=== PATIENT | male | born 1975 | race Caucasian/White ===

== ENCOUNTER 2020-05-23 11:54 | Outpatient (REF) | payer BC, SELFPAY ==
[2020-05-23 14:03] LABS: MANUAL DIFF FLAG NO
[2020-05-23 14:39] LABS: Basophils Absolute Auto 0.1 X10*3/uL (0.0-0.2); Basophils Percent Auto 0.8 % (0-2); Eosinophils Absolute Auto 0.3 X10*3/uL (0.0-0.4); Hemoglobin 15.9 g/dl (14.0-18.0); Imm Gran Abs Auto 0.06 X10*3/uL (0.00-0.03); Imm Gran Pct Auto 0.7 % (0.0-0.4); Lymphocytes Absolute Auto 2.1 X10*3/uL (1.2-4.9); Lymphocytes Percent Auto 25.8 % (20-40); Mean Corpuscular HGB Conc 33.8 g/dl (31.0-36.0); Mean Corpuscular Hemoglobin 29.2 pg (27.0-33.0); Mean Corpuscular Volume 86.2 fL (80-98); Mean Platelet Volume 9.7 fL (9.4-12.4); Monocytes Absolute Auto 0.7 X10*3/uL (0.1-1.2); Monocytes Percent Auto 8.2 % (2-11); Neutrophils Absolute Auto 5.1 X10*3/uL (2.0-8.3); Neutrophils Percent Auto 61.5 % (45-73); Platelet Count 311 X10*3/uL (160-400); Red Blood Count 5.45 X10*6/uL (4.60-5.80); Red Cell Distribution Width 12.7 % (11.0-16.0); White Blood Count 8.3 X10*3/uL (4.8-10.8)
[2020-05-23 15:22] LABS: Thyroid Stimulating Hormone 4.14 uIU/mL (0.32-4.0)
[2020-05-23 15:29] LABS: Alanine Aminotransferase 44 U/L (0-40); Albumin Level 4.6 g/dL (3.5-5.0); Alkaline Phosphatase 78 U/L (39-117); Anion Gap 11 (12-20); Aspartate Amino Transferase 43 U/L (5-37); Bilirubin Total 0.7 mg/dL (0.0-1.0); Blood Urea Nitrogen 13 mg/dL (9-16); Carbon Dioxide 28 mmol/L (22-29); Chloride 107 mmol/L (96-108); Cholesterol 210 mg/dL; Estimated Glomerular Filt Rate > 60; Glucose Fasting 86 mg/dL (60-99); HDL Cholesterol 46 mg/dL; LDL Cholesterol Calculated 141 mg/dl; Potassium 4.4 mmol/l (3.3-5.1); Sodium 142 mmol/L (135-145); Triglycerides 119 mg/dL
== END 2020-05-23 11:55 | disposition home or self-care (01) ==
LOC: HO.HMGCLDS 11:54
PROVIDERS: PCP Internal Medicine; Visit Provider Internal Medicine
DX: J45.20 Mild intermittent asthma, uncomplicated (principal); Z00.00 Encounter for general adult medical examination without abnormal findings; E66.01 Morbid (severe) obesity due to excess calories
CPT/HCPCS: 36415; 80053; 80061; 84443; 85025

== ENCOUNTER 2023-12-25 15:40 | Outpatient (AMB) | payer OTHER, SELFPAY ==
--- NOTE | 2023-12-25 15:49 | AM.OFFWIN_ITS ---
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 ? Cellulitis Patient Tobacco Use Status: Never used Tobacco Allergies No Known Allergies Allergy (Unknown, Verified 12/25/23 15:49) NONE Do you need a note to return to daycare/school/sports/work: No HPI HPI Comments History of Present Illness Details Patient is a 48-year-old male complaining of questionable cellulitis on his left lower extremity. He states it has been there for 2 weeks but has gotten worse in the last few days. He has been treating it with petroleum jelly. He states he has swelling in both of his legs but only these open wounds on his left leg. He denies fevers and he is able to ambulate well. Patient states he does not have a primary care doctor and he has gained 100 lb over the last year because he is in a aguilera with his ex- over custody of his son. He states he recently 1 custody and hopes to get life back in order soon but he states he does not take any medications because he has no primary care doctor to assess his current health. [facility] Social History Patient Tobacco Use Status: Never used Tobacco Review of Systems Const All systems reviewed & are unremarkable except as noted in HPI and below Physical Exam Vital Signs: Last Vital Signs Temp 98.5 F 12/25/23 15:50 Pulse 81 12/25/23 15:50 BP 162/94 H 12/25/23 15:50 Pulse Ox 97 12/25/23 15:50 Oxygen Delivery Method Room Air 12/25/23 15:50 BMI result Body Mass Index 60.8 Const General: cooperative, healthy appearing, comfortable, no acute distress and well developed Orientation/consciousness: patient oriented x3 Limitations: no limitations HEENT Head: Yes normal to inspection Eyes General: appearance normal, both eyes and all related structures Neck Neck: Yes normal visual inspection and Yes full ROM Resp Effort & Inspection: normal respiratory effort and able to speak in complete sentences Skin Other: Anterior Left lower extremity has 9cm x 3cm area of induration, erythema and warmth with five 0.5 cm areas of open wounds with purulence Neuro General: patient oriented x3 Extrem General: Yes normal to inspection Assessment & Plan Assessment & Plan (1) Cellulitis: Code(s): L03.90 - Cellulitis, unspecified Qualifiers: Site of cellulitis: extremity Site of cellulitis of extremity: lower extremity Laterality: left Qualified Code(s): L03.116 - Cellulitis of left lower limb Plan: With purulent wounds and likely cellulitis, sent doxycycline to pharmacy. Recommended patient establish care with a PCP as soon as possible, his rapid weight gain over the last year, he likely has diabetes or at least his prediabetic and needs to establish care with a provider to have proper diagnosis and treatment of his current health. Plan See above Medications: New doxycycline hyclate 100 mg PO BID 14 tabs 0RF Coding Level of Care Code New Pt Level 3 (40249) Diagnoses Cellulitis of left lower extremity L03.116 Site of cellulitis: extremity Site of cellulitis of extremity: lower extremity Laterality: left
[2023-12-25 15:50] VITALS: BP 162/94; PULSE 81; TEMP 36.9; O2SAT 97; BMI 60.8
== END 2023-12-25 16:54 | disposition home or self-care (01) ==
PROVIDERS: Visit Provider Physician Assistant
DX: L03.116 Cellulitis of left lower limb (principal)
CPT/HCPCS: 99203

== ENCOUNTER 2024-05-13 12:28 | Outpatient (AMB) | payer OTHER, SELFPAY ==
[2024-05-13 12:34] VITALS: BP 138/80; PULSE 92; O2SAT 97; BMI 61.4
--- NOTE | 2024-05-13 12:34 | A.OFFPC_ITS ---
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 Intake Note: pt is here to est care, has skin issues Allergies No Known Allergies Allergy (Unknown, Verified 05/13/24 13:06) NONE Medication List - Last Reconciled 05/13/24 by VIKAS Rothman No Known Home Meds Tobacco use date assessed: 05/13/24 Dental Screening Dental Screen Date: 05/13/24 Did you have a dental visit in the last 12 months?: Yes Did you have a dental problem in the last 6 months where you did not have access to dental care?: No Was dental information given to patient?: Patient has dentist HPI 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 The patient reports significant legal and familial stress ongoing for over three and a half years, primarily related to custody disputes concerning his son, who is 16 years old and has transitioned gender. The patient has described issues with stress eating, which has contributed to his current obesity. He reports a weight of over a quarter ton, with a history of his weight being 220 pounds approximately four years ago. He acknowledges using food as an escape from stressors. The patient denied a history of trauma related to his child?s behavior but mentioned ongoing legal battles involving court cases and accusations, which have resulted in increased stress and weight gain. The patient is aware of unhealthy eating patterns and connects these behaviors to his current health challenges. BMI is 61.4 and he has tried diets and exercise programs. 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. - Housing: Owns a primary residence and a [place] house. - Family status: in 2019; has a stepdaughter and a step son. - Substance use: None reported. - Exercise: Reports interest in kayaking ; limited recent participation due to stress. - Nutrition: Reports stress-related over eating, particularly when encountering work challenges. Review of Systems - Neurological: Denies persistent headac hes or dizziness. - Cardiovascular: Denies chest pain. - Pulmonary: Denies shortness of breath unless exerted. - : Reports no urinary frequency, urge ncy, or nocturia outside of usual habits. - Musculoskeletal: Denies persistent lior n. - Psychological: Reports significant str ess due to personal and legal issues. Physical Exam General: Cooperative, healthy appearing, comfortable, no acute distress and well developed, morbidly obese Orientation: Patient oriented x3 Limitations: No limitations Head: Normal to inspection Ears: Hearing grossly normal bilaterally Nose: Normal external nose present Face and sinus: Normal facial exam Eyes: Appearance normal, both eyes and all related structures Neck: Normal visual inspection and Yes full ROM Respiratory: Normal respiratory effort and able to speak in complete sentences. Clear to auscultation bilaterally Cardiovascular: Regular rate and rhythm. Normal S1 and S2 : refused JARED GI: Normal to inspection. Soft to palpation and nontender Skin: No rashes or lesions noted Neuro: Patient oriented x3 Extremities: Brawny edema noted with discoloration and pitting in lower extremities Results - Labs: Scheduled for comprehensive lab work including a PSA test. - Tests and diagnostics: EKG planned to establish baseline cardiac function. Plan - Obesity: Discussed the possibility of initiating pharmacotherapy for weight management. Plan to submit prescription for Wegovy, pending insurance approval, with monitoring for possible side effects like constipation. - Stress-related eating behavior: Encour aged improved dietary habits and gradual lifestyle modifications to counteract stress eating. Suggested initiation of therapy for psychological support. - Legal and familial stress: Validated e motional stress. Encourage continued therapy sessions for ongoing mental health support. - Lower extremity edema: Monitor while m anaging weight; compression options to be considered if indicated. Patient was informed and verbally consented to the use of an ambient scribe for clinic note documentation during this visit. Discussion Notes I discussed with the patient the importance of addressing both mental and physical health concomitantly, particularly in light of significant familial stress impacting his well-being. We considered the benefits and potential side effects of weight management therapy, such as Wegovy, for which the patient seemed interested and motivated. Additionally, I emphasized maintaining adherence to a healthier diet and including regular exercise, highlighting the potential positive impacts on both physical and mental health. We reviewed future care plans that include completing recommended screenings (colon and prostate exams) and scheduled follow-up to track progress and adapt the treatment plan as needed. Patient Instructions - Begin prescribed Wegovy treatment once approved and monitor for side effects. - Schedule and prepare for recommended c olonoscopy and complete fasting labs. - Engage in regular therapy sessions for stress management. - Gradually incorporate healthier dietar y choices and exercise into daily routine. - Seek support from his sister and hayde jimenez close communication for emotional well-being. - Follow up in four months for reassessm ent and progress review. -cont with your therapist [facility] Surgical History Hx of wisdom tooth extraction Family History Mother COPD (chronic obstructive pulmonary disease) Dementia Diabetes Father Dementia Diabetes Social History Housing: House Alcohol intake: never Patient Tobacco Use Status: Never used Tobacco e-Cigarette/Vaping Use: Never Used service: No Current occupational status: employed Current occupation: [employer] Current occupational exposures/hazards: No Cognitive needs: No Hearing needs: No Vision needs: Yes Questionnaire PHQ-9 Over the last 2 weeks, how often have you been bothered by any of the following problems? 1. Little interest or pleasure in doing things: not at all 2. Feeling down, depressed, or hopeless: several days 3. Trouble falling or staying asleep, or sleeping too much: not at all 4. Feeling tired or having little energy: several days 5. Poor appetite or overeating: more than half the days 6. Feeling bad about yourself - or that you are a failure or have let yourself or your family down: not at all 7. Trouble concentrating on things, such as reading the newspaper or watching television: several days 8. Moving or speaking so slowly that other people could have noticed. Or the opposite - being so fidgety or restless that you have been moving around a lot more than usual: not at all 9. Thoughts that you would be better off or of hurting yourself in some way: not at all Total score: 5 Depression Screening Interpretation: Negative (currently seeing a therapist, denies any si or hi) Depression Screening Done: Yes 50996 - PHQ-9 Billing: Yes Source: Developed by Drs. Joseph Olivo, Wesly Landin and colleagues, with an educational lia from [employer]. Thrive Questionnaire Date Thrive assessed: 05/13/24 I am a: Patient What is your living situation today?: I have a steady place to live Within the past 12 months, did the food you bought not last and you didn't have the money to get more?: Never true Within the past 12 months, did you worry whether your food would run out before you got money to buy more?: Never true Do you have trouble paying for medicines?: No Do you have trouble getting transportation to medical appointments?: No Do you have trouble paying your heating and electricity bill?: No Do you have trouble taking care of your child, family member or friend?: I choose not to answer this question Do you have trouble with day-to-day activities such as bathing, preparing meals, shopping, managing finances, etc.?: No Are you currently unemployed and looking for a job?: No Are you interested in more education?: No Please select the resources that you would like help with: None Currently or been in a relationship where the following occur: No concerns reported THRIVE Score: 0 AUDIT C Alcohol Use Questionnaire (AUDIT-C) 1. How often do you have a drink containing alcohol?: Never 3. How often do you have six or more drinks on one occasion?: Never Total Score: 0 Score Reviewed/Action Taken: Yes EDILIA-7 AMB Questionnaire EDILIA-7 Date EDILIA - 7 assessed: 05/13/24 Feeling nervous, anxious, or on edge: 0 = Not at all Not being able to stop or control worryin = Not at all Worrying too much about different things: 1 = Several days Trouble relaxin = Several days Being so restless that it is hard to sit still: 0 = Not at all Becoming easily annoyed or irritable: 0 = Not at all Feeling afraid as if something awful might happen: 1 = Several days Total EDILIA-7 score (0-4 normal; 5-9 mild; 10-14 moderate; 15-21 severe): 3 Source: Developed by Drs. Joseph Olivo, Wesly Landin and colleagues, with an educational lia from [employer]. EDILIA-7 Assessment Billing EDILIA-7 Assessment Tool: EDILIA-7 Assessment 17426 (has a therapist, denies any si or hi) Physical exam (Primary Care) Vital Signs: Last Vital Signs Pulse 92 05/13/24 12:34 BP 138/80 05/13/24 12:34 Pulse Ox 97 05/13/24 12:34 BMI result Body Mass Index 61.4 Tobacco/Smoking Status: Tobacco use Status Tobacco use date assessed 05/13/24 05/13/24 12:42 Patient Tobacco Use Status Never used Tobacco 05/13/24 12:42 e-Cigarette/Vaping Use Never Used 05/13/24 12:42 PHQ-9: PHQ-9 Score PHQ-9: Total score 5 05/13/24 13:11 Depression Screening Interpretation: Negative (currently seeing a therapist, denies any si or hi) Thrive Assessment: Date of Thrive Assessment Date Thrive assessed 05/13/24 05/13/24 12:42 Currently or been in a relationship where the following occur: No concerns reported Coding Level of Care Code New Pt Prev Care 40-64y(98207) Diagnoses Physical exam Z00.00 Screening for prostate cancer Z12.5 Morbid obesity E66.01 Screening for colon cancer Z12.11 Edema R60.9 Additional Codes PHQ-9 - 10562 - PHQ-9 Billing: Yes ([id number]) EDILIA-7 Assessment Billing - EDILIA-7 Assessment Tool: EDILIA-7 Assessment 14279 ([id number]) Assessment & Plan Assessment & Plan (1) Physical exam: Code(s): Z00.00 - Encounter for general adult medical examination without abnormal findings Category: Medical (2) Screening for prostate cancer: Code(s): Z12.5 - Encounter for screening for malignant neoplasm of prostate Category: Medical (3) Morbid obesity: Code(s): E66.01 - Morbid (severe) obesity due to excess calories Category: Medical (4) Screening for colon cancer: Code(s): Z12.11 - Encounter for screening for malignant neoplasm of colon Category: Medical (5) Edema: Code(s): R60.9 - Edema, unspecified Category: Medical Plan . Orders: Orders Complete Blood Count Auto Diff Today Z00.00 - Encounter for general adult medical examination without abnormal findings Comprehensive [place]. Panel Fast Today Z00.00 - Encounter for general adult medical examination without abnormal findings UA CC w/rflx Micro + Cult Today Z00.00 - Encounter for general adult medical examination without abnormal findings AMB EKG-In Office Today E66.01 - Morbid (severe) obesity due to excess calories, Z00.00 - Encounter for general adult medical examination without abnormal findings TSH reflex Free T4 Today Z00.00 - Encounter for general adult medical examination without abnormal findings Lipid Panel Today Z00.00 - Encounter for general adult medical examination without abnormal findings Prostate Specific Antigen Scr Today Z12.5 - Encounter for screening for malignant neoplasm of prostate B Type Natriuretic Peptide Today E66.01 - Morbid (severe) obesity due to excess calories, R60.9 - Edema, unspecified Referrals Gastroenterology Referral Z12.11 - Encounter for screening for malignant neoplasm of colon Medications: New semaglutide (weight loss) ([place]) administer weeks 1 through 4 of therapy 0.25 mg (0.5 mL) subcut QWEEK 2 mL 0RF
== END 2024-05-13 13:42 | disposition home or self-care (01) ==
PROVIDERS: PCP Nurse Practitioner Family; Visit Provider Nurse Practitioner Family
DX: Z00.00 Encounter for general adult medical examination without abnormal findings (principal); Z12.5 Encounter for screening for malignant neoplasm of prostate; E66.01 Morbid (severe) obesity due to excess calories; Z68.44 Body mass index [BMI] 60.0-69.9, adult; Z12.11 Encounter for screening for malignant neoplasm of colon; R60.9 Edema, unspecified

== ENCOUNTER → 2024-05-13 12:28 | Outpatient (BNVA) | payer OTHER, SELFPAY | PROVIDERS: PCP Nurse Practitioner Family; Visit Provider Nurse Practitioner Family | DX: Z00.00 Encounter for general adult medical examination without abnormal findings (principal); E66.01 Morbid (severe) obesity due to excess calories; Z68.44 Body mass index [BMI] 60.0-69.9, adult; R60.9 Edema, unspecified | CPT/HCPCS: 96127 ==

== ENCOUNTER 2024-09-12 08:19 | Outpatient (REF) | payer OTHER, SELFPAY ==
[2024-09-12 11:42] LABS: MANUAL DIFF FLAG NO
[2024-09-12 11:43] LABS: Appearance Urine Clear; Color Urine Yellow; Glucose Urine UA Negative (Negative); Leukocyte Esterase Urine Negative (Negative); Nitrite Urine Negative (Negative); PH 5.5 (5.0-9.0); Specific Gravity - Urine >= 1.030 (1.005-1.025); Urine Blood Negative (Negative); Urine Ketones Trace mg/dL (Negative); Urine Protein Negative (Neg-Trace)
[2024-09-12 12:03] LABS: Basophils Absolute Auto 0.1 X10*3/uL (0.0-0.2); Basophils Percent Auto 1.2 % (0-2); Eosinophils Absolute Auto 0.2 X10*3/uL (0.0-0.4); Eosinophils Percent Auto 2.8 % (0-4); Hematocrit 44.1 % (42.0-52.0); Hemoglobin 14.7 g/dl (14.0-18.0); Imm Gran Abs Auto 0.05 X10*3/uL (0.00-0.03); Imm Gran Pct Auto 0.7 % (0.0-0.4); Lymphocytes Percent Auto 26.9 % (20-40); Mean Corpuscular HGB Conc 33.3 g/dl (31.0-36.0); Mean Platelet Volume 9.9 fL (9.4-12.4); Monocytes Absolute Auto 0.6 X10*3/uL (0.1-1.2); Monocytes Percent Auto 8.8 % (2-11); Neutrophils Absolute Auto 4.3 x10*3/uL (2.0-8.3); Neutrophils Percent Auto 59.6 % (45-73); Platelet Count 292 X10*3/uL (160-400); Red Blood Count 5.07 X10*6/uL (4.60-5.80); Red Cell Distribution Width 13.5 % (11.0-16.0); White Blood Count 7.2 X10*3/uL (4.8-10.8)
[2024-09-12 12:05] LABS: B Type Natriuretic Peptide < 10 pg/mL (<100)
[2024-09-12 12:20] LABS: Alanine Aminotransferase 40 U/L (0-40); Albumin Level 4.2 g/dL (3.5-5.0); Alkaline Phosphatase 83 U/L (39-117); Anion Gap 11 (12-20); Aspartate Amino Transferase 39 U/L (5-37); Bilirubin Total 0.5 mg/dL (0.0-1.0); Blood Urea Nitrogen 19 mg/dL (9-16); Calcium 9.4 mg/dL (8.4-10.2); Carbon Dioxide 25 mmol/L (22-29); Chloride 110 mmol/L (96-108); Cholesterol 174 mg/dL (<200); Estimated Glomerular Filt Rate > 60; Glucose Fasting 88 mg/dL (60-99); HDL Cholesterol 39 mg/dL (>40); LDL Cholesterol Calculated 118 mg/dL (<100); Sodium 142 mmol/L (135-145); Total Protein 6.8 g/dL (6.5-8.0); Triglycerides 85 mg/dL (<150)
[2024-09-12 12:21] LABS: Prostate Specific Antigen Scr 0.83 ng/mL (<0.05-4.0)
[2024-09-12 12:24] LABS: TSH reflex Free T4 3.49 uIU/mL (0.32-4.0)
== END 2024-09-12 08:20 | disposition home or self-care (01) ==
LOC: HO.HMGCLDS 08:19
PROVIDERS: PCP Nurse Practitioner Family; Visit Provider Nurse Practitioner Family
DX: Z00.00 Encounter for general adult medical examination without abnormal findings (principal); Z12.5 Encounter for screening for malignant neoplasm of prostate; R60.9 Edema, unspecified; E66.01 Morbid (severe) obesity due to excess calories
CPT/HCPCS: 36415; 80053; 80061; 81003; 83880; 84153; 84443; 85025

== ENCOUNTER 2024-09-14 14:11 | Outpatient (AMB) | payer OTHER, SELFPAY ==
[2024-09-14 14:16] VITALS: BP 136/76; PULSE 87; O2SAT 97; BMI 61.4
--- NOTE | 2024-09-14 14:16 | MHC.PC.OV ---
Vital Signs 09/14/24 14:16 Height 5 ft 4 in Weight 358 lb BMI 61.4 BP 136/76 Blood Pressure Location Lt brachial Position Sitting Pulse 87 Pulse Source Pulse Oximeter Pulse Oximetry (%) 97 Oxygen Delivery Method Room Air Intake Visit Reasons: 4 month follow up Wound/Ostomy Clinical Nurse Specialist Required: No Accompanied by: Self / Same As Patient Allergies No Known Allergies Allergy (Unknown, Verified 09/14/24 15:16) NONE Medication List - Last Reconciled 09/14/24 by JULIETH Rothman semaglutide (weight loss) 0.5 mg (0.5 mL) subcut QWEEK Tobacco use date assessed: 09/14/24 Dental Screening Dental Screen Date: 09/14/24 Did you have a dental visit in the last 12 months?: Yes Did you have a dental problem in the last 6 months where you did not have access to dental care?: No Was dental information given to patient?: Patient has dentist HPI 4 month follow up HPI Details Chief Complaint The patient reports feeling fair amidst personal stress and concerns. History of Present Illness The patient is a 49-year-old male presenting with stress for a generalized follow-up visit. He has been experiencing stress due to ongoing legal issues and family concerns involving his son, with expected resolution in the coming months. He denies any suicidal or homicidal ideation. The patient's health history includes morbid obesity and asthma. Currently, he is on Wegovy for weight management but has not achieved notable weight loss. He tolerates the medication well, and the dose is planned to be increased. Despite a history of asthma, he expresses no current symptoms and prefers not to undergo additional testing. A short-acting beta agonist was prescribed as a precaution, with instructions provided for its use. Social History - Experiencing stress related to legal matters and family issues. - Current medication: Wegovy for weight management. Health Maintenance - Weight management discussion: Wegovy dosage to be increased. Review of Systems - Respiratory: Denies current asthma symptoms. - Psychiatric: Denies suicidal ideation or homicidal ideation. Physical Exam General: Cooperative, healthy appearing, comfortable, no acute distress and well developed, morbidly obese Orientation: Patient oriented x3 Limitations: No limitations Head: Normal to inspection Ears: Hearing grossly normal bilaterally Nose: Normal external nose present Face and sinus: Normal facial exam Eyes: Appearance normal, both eyes and all related structures Neck: Normal visual inspection and Yes full ROM Respiratory: Very faint scattered expiratory wheezing. Able to speak in complete sentences. Clear to auscultation bilaterally, otherwise Cardiovascular: Regular rate and rhythm. Normal S1 and S2 GI: Normal to inspection. Soft to palpation and nontender Skin: No rashes or lesions noted Neuro: Patient oriented x3 Extremities: Normal to inspection Results Plan 1. 5 mg to promote more effective weight loss. I ensured he thoroughly understands the intention behind this management approach.: Discussion Notes We discussed the patient's concerns related to stress due to ongoing legal and family issues. I advised that we will keep monitoring the situation as new developments occur. The patient understood and agreed with the plan for managing his weight using Wegovy, with the upcoming dose increase to 0.5 mg to assist with weight loss. Potential risks and benefits of this medication were reviewed, and I emphasized the importance of adherence to the prescribed dose. I provided a short-acting beta agonist for his past asthma, with direct instructions on use, although he prefers not to pursue further diagnostic workups for asthma at the moment. Patient Instructions - Continue Wegovy and expect a dose increase to 0.5 mg. - Use the short-acting beta agonist as advised if asthma symptoms occur. - Monitor stress levels and seek support if necessary. - Return if any new symptoms develop or existing symptoms worsen. [facility] Surgical History Hx of wisdom tooth extraction Family History Mother COPD (chronic obstructive pulmonary disease) Dementia Diabetes Father Dementia Diabetes Social History Housing: House Alcohol intake: never Patient Tobacco Use Status: Never used Tobacco e-Cigarette/Vaping Use: Never Used service: No Current occupational status: employed Current occupation: [employer] Current occupational exposures/hazards: No Cognitive needs: No Hearing needs: No Vision needs: Yes Questionnaire PHQ-9 Over the last 2 weeks, how often have you been bothered by any of the following problems? 1. Little interest or pleasure in doing things: several days 2. Feeling down, depressed, or hopeless: not at all 3. Trouble falling or staying asleep, or sleeping too much: not at all 4. Feeling tired or having little energy: several days 5. Poor appetite or overeating: several days 6. Feeling bad about yourself - or that you are a failure or have let yourself or your family down: not at all 7. Trouble concentrating on things, such as reading the newspaper or watching television: several days 8. Moving or speaking so slowly that other people could have noticed. Or the opposite - being so fidgety or restless that you have been moving around a lot more than usual: not at all 9. Thoughts that you would be better off or of hurting yourself in some way: not at all Total score: 4 Depression Screening Interpretation: Negative Depression Screening Done: Yes 53144 - PHQ-9 Billing: Yes Source: Developed by Drs. Joseph Olivo, Renea Mancilla, Wesly Lemus and colleagues, with an educational lia from [employer]. Thrive Questionnaire Date Thrive assessed: 09/14/24 I am a: Patient What is your living situation today?: I have a steady place to live Within the past 12 months, did the food you bought not last and you didn't have the money to get more?: Never true Within the past 12 months, did you worry whether your food would run out before you got money to buy more?: Never true Do you have trouble paying for medicines?: No Do you have trouble getting transportation to medical appointments?: No Do you have trouble paying your heating and electricity bill?: No Do you have trouble taking care of your child, family member or friend?: No Do you have trouble with day-to-day activities such as bathing, preparing meals, shopping, managing finances, etc.?: No Are you currently unemployed and looking for a job?: No Are you interested in more education?: No Please select the resources that you would like help with: None Currently or been in a relationship where the following occur: No concerns reported THRIVE Score: 0 AUDIT C Alcohol Use Questionnaire (AUDIT-C) 1. How often do you have a drink containing alcohol?: Monthly or less 2. How many drinks containing alcohol do you have on a typical day when you are drinking?: 1 or 2 3. How often do you have six or more drinks on one occasion?: Never Total Score: 1 Score Reviewed/Action Taken: Yes EDILIA-7 AMB Questionnaire EDILIA-7 Date EDILIA - 7 assessed: 09/14/24 Feeling nervous, anxious, or on edge: 1 = Several days Not being able to stop or control worryin = Not at all Worrying too much about different things: 1 = Several days Trouble relaxin = Not at all Being so restless that it is hard to sit still: 0 = Not at all Becoming easily annoyed or irritable: 1 = Several days Feeling afraid as if something awful might happen: 0 = Not at all Total EDILIA-7 score (0-4 normal; 5-9 mild; 10-14 moderate; 15-21 severe): 3 Source: Developed by Drs. Joseph Olivo, Renea Mancilla, Wesly Lemus and colleagues, with an educational lia from [employer]. EDILIA-7 Assessment Billing EDILIA-7 Assessment Tool: EDILIA-7 Assessment 72778 Physical exam (Primary Care) Vital Signs: Last Vital Signs Pulse 87 09/14/24 14:16 BP 136/76 09/14/24 14:16 Pulse Ox 97 09/14/24 14:16 Oxygen Delivery Method Room Air 09/14/24 14:16 BMI result Body Mass Index 61.4 Tobacco/Smoking Status: Tobacco use Status Tobacco use date assessed 09/14/24 09/14/24 14:18 Patient Tobacco Use Status Never used Tobacco 09/14/24 14:18 e-Cigarette/Vaping Use Never Used 09/14/24 14:18 PHQ-9: PHQ-9 Score PHQ-9: Total score 4 09/14/24 14:18 Depression Screening Interpretation: Negative Thrive Assessment: Date of Thrive Assessment Date Thrive assessed 09/14/24 09/14/24 14:18 Currently or been in a relationship where the following occur: No concerns reported Coding Level of Care Code Est Pt Level 3 (80540) Diagnoses Morbid obesity E66.01 Asthma J45.909 Additional Codes EDILIA-7 Assessment Billing - EDILIA-7 Assessment Tool: EDILIA-7 Assessment 26688 ([id number]) PHQ-9 - 54026 - PHQ-9 Billing: Yes ([id number]) Assessment & Plan Assessment & Plan (1) Morbid obesity: Code(s): E66.01 - Morbid (severe) obesity due to excess calories Category: Medical (2) Asthma: Code(s): J45.909 - Unspecified asthma, uncomplicated Category: Medical Plan . Medications: New albuterol sulfate 90 mcg/actuation (Ventolin HFA) 2 puffs inhalation Q6H PRN 8.5 grams 0RF shortness of breath or wheezing Changed From semaglutide (weight loss) ([place]) administer weeks 1 through 4 of therapy 0.25 mg (0.5 mL) subcut QWEEK 2 mL 0RF To semaglutide (weight loss) administer weeks 1 through 4 of therapy 0.5 mg (0.5 mL) subcut QWEEK 2 mL 0RF
== END 2024-09-14 15:05 | disposition home or self-care (01) ==
LOC: HO.HMCC 14:12
PROVIDERS: PCP Nurse Practitioner Family; Visit Provider Nurse Practitioner Family
DX: J45.909 Unspecified asthma, uncomplicated (principal); E66.01 Morbid (severe) obesity due to excess calories; Z68.44 Body mass index [BMI] 60.0-69.9, adult

== ENCOUNTER → 2024-09-14 14:11 | Outpatient (BNVA) | payer OTHER, SELFPAY | PROVIDERS: PCP Nurse Practitioner Family; Visit Provider Nurse Practitioner Family | DX: E66.01 Morbid (severe) obesity due to excess calories (principal); Z68.44 Body mass index [BMI] 60.0-69.9, adult; J45.909 Unspecified asthma, uncomplicated | CPT/HCPCS: 96127 ==

== ENCOUNTER 2024-11-12 12:44 | Outpatient (AMB) | payer OTHER, SELFPAY ==
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
[2024-11-12 12:59] VITALS: BP 128/68; PULSE 80; O2SAT 98; BMI 59.2
--- OUTSIDE RECORDS SUMMARY | 2024-11-12 14:48 | XMS_ITS | Patient Health Record ---
Author Organization [facility] [place] Address [address] [address] Care Team Providers Care Insurance Biller Name Role Phone Nadir HERNANDEZ, Joseph Primary Care Provider Unavail able Ranjan [place] Unavailable [phone] Reason For Referral No Information Social History Tobacco Use: Social History Observation Description Date Details (start date - stop date) Never Smoker NA - NA Tobacco Use/Smoking Question Answer Notes Are you a: nonsmoker Additional Findings: Tobacco Non-User Current no n-smoker Alcohol Screen Question Answer Notes Did you have a drink containing alcohol in the p ast year? No Points 0 Interpretation Negative Tobacco use other than smoking: Question Answer Notes Are you an other tobacco user? No Plan Of Treatment Pending Test Test Name Order Date [id number] TENDON SHEATH/LIGAMENT 0 07/25/2018 Insurance Providers Payer Name Payer Address Payer Phone Subscriber Number Group Number Insured Name Patient Relationship to Insured Coverage Start Date Coverage End Date [facility] [address] [place] [address] [id number] Jer[address] Saul Self - patient is the insured Medical (General) History Medical History History ICD Code intraabdominal abscess, s/p CT guided drainage (probably secondary to a ruptured appendix) cardiac murmur asthma in childhood hypertension, borderline obesity Surgical History Surgery Date(Month/Year)
== END 2024-11-12 13:34 | disposition home or self-care (01) ==
LOC: HO.HGI 12:45
PROVIDERS: PCP Nurse Practitioner Family; Visit Provider Nurse Practitioner
DX: Z01.818 Encounter for other preprocedural examination (principal); Z12.11 Encounter for screening for malignant neoplasm of colon; E66.01 Morbid (severe) obesity due to excess calories; Z68.43 Body mass index [BMI] 50.0-59.9, adult
CPT/HCPCS: S0285

== ENCOUNTER → 2024-11-12 12:44 | Outpatient (BNVA) | payer OTHER, SELFPAY | PROVIDERS: PCP Nurse Practitioner Family; Visit Provider Nurse Practitioner ==

== ENCOUNTER 2025-02-02 07:55 | Day surgery (SDC) | payer OTHER, SELFPAY ==
--- OUTSIDE RECORDS SUMMARY | 2025-01-15 13:22 | XMS_ITS | Patient Health Record ---
Author Organization [facility] [place] Address [address] [place] [address] Care Team Providers Care Senior Windows Systems Engineer Name Role Phone Nadir HERNANDEZ, Joseph Primary Care Provider Unavail able Ranjan [place] Unavailable [phone] Reason For Referral No Information Social History [...] Treatment Pending Test Test Name Order Date [id number] TENDON SHEATH/LIGAMENT 0 07/25/2018 Insurance Providers Payer Name Payer Address Payer Phone Subscriber Number Group Number Insured Name Patient Relationship to Insured Coverage Start Date Coverage End Date [facility] [address] [place] [address] [id number] Jerad Saul Self - patient is the insured Medical (General) History Medical History History ICD Code intraabdominal abscess, s/p CT guided drainage (probably secondary to a ruptured appendix) cardiac murmur asthma in childhood hypertension, borderline obesity Surgical History Surgery Date(Month/Year)
--- NOTE | 2025-02-01 12:32 | HO.ANESPROP2 ---
Documented by User: Bibi Mohr NP 02/01/25 12:32 HPI - Anesthesia Eval Consult details Narrative: 49yo M for Colonoscopy Anesthesia Pre-Procedure Meds Is the patient on any of the following meds?: GLP1/DPP4 PMFSH Active Problems Active Problems: All Active Problems Pre-op examination (Acute) Asthma (Acute) Edema (Acute) Morbid obesity (Acute) Cellulitis (Acute) Past Medical History Medical History (Updated 02/01/25 @ 10:41 by Elvira Patel RN) Asthma Screening for prostate cancer Physical exam Screening for colon cancer Appendix perforation Family History Family History Mother COPD (chronic obstructive pulmonary disease) Dementia Diabetes Father Dementia Diabetes Surgical History Surgical History (Updated 11/12/24 @ 13:14 by ALTHEA Peralta) Status post incision and drainage Hx of wisdom tooth extraction Social History Social History Housing: House Are you a primary healthcare insurance sales agent to a significant other at home: No Do you presently have visiting nurse or other home services: No Alcohol intake: never Patient Tobacco Use Status: Never used Tobacco e-Cigarette/Vaping Use: Never Used Use of substances other than those prescribed or required for medical reasons: No Have you been hit, kicked, punched, or otherwise hurt by someone within the past year? If so, by whom?: No Are you DNR?: No Advance Directives: No Advance Directives Information Provided: Yes Poor oral hygiene: No service: No Current occupational status: employed Current occupation: [employer] Current occupational exposures/hazards: No Cognitive needs: No Hearing needs: No Vision needs: Yes Meds Allergies Allergy/AdvReac Type Severity Reaction Status Date / Time No Known Allergies Allergy Unknown NONE Verified 02/02/25 08:14 Assessment and Plan Assessment Anesthesia Assessment: Chart Reviewed Documented by User: Mik Holley MD 02/02/25 09:30 [facility] Past Medical History Medical History (Updated 02/01/25 @ 10:41 by Elvira Patel RN) Asthma Screening for prostate cancer Physical exam Screening for colon cancer Appendix perforation Family History Family History Mother COPD (chronic obstructive pulmonary disease) Dementia Diabetes Father Dementia Diabetes Family history of problems with anesthesia: No Surgical History Surgical History (Updated 11/12/24 @ 13:14 by ALTHEA Peralta) Status post incision and drainage Hx of wisdom tooth extraction History of Problems with Anesthesia: No Social History Social History Housing: House Are you a primary healthcare insurance sales agent to a significant other at home: No Do you presently have visiting nurse or other home services: No Alcohol intake: never Patient Tobacco Use Status: Never used Tobacco e-Cigarette/Vaping Use: Never Used Use of substances other than those prescribed or required for medical reasons: No Have you been hit, kicked, punched, or otherwise hurt by someone within the past year? If so, by whom?: No Are you DNR?: No Advance Directives: No Advance Directives Information Provided: Yes Poor oral hygiene: No service: No Current occupational status: employed Current occupation: [employer] Current occupational exposures/hazards: No Cognitive needs: No Hearing needs: No Vision needs: Yes Meds Allergies Allergy/AdvReac Type Severity Reaction Status Date / Time No Known Allergies Allergy Unknown NONE Verified 02/02/25 08:14 Exam Airway Mallampati Class: III TM Dist: >3cm Neck ROM: Full Assessment and Plan Assessment Anesthesia Assessment: Anesthesia Plan Discussed and Chart Reviewed Final Anesthetic Review Family History of Problems with Anesthesia: No History of Problems with Anesthesia: No NPO: Yes ASA Class: III Final Preanesthetic Review: No Changes in Pt Med Stat, Meds/Allgs Chart Reviewed, Consent Obtained/Reviewed and Anes Risks/Benef Reviewed Patient Risk: Intermediate Procedure Risk: Low Anesthetic Plan Anesthetic Plan: TIVA Disposition: Standard PACU
[2025-02-02 08:22] VITALS: BP 150/85; PULSE 88; RESP 16; TEMP 36.3; O2SAT 97; BMI 59.4
[2025-02-02] MEDS: Lactated Ringers 1,000 ML 100 ML IVCONT (08:26)
--- NOTE | 2025-02-02 08:44 | MHC.SHP ---
Pre-Procedural Eval Section A - 24 Hr Update-Section A only Date of Service: 02/02/25 Section B - Complete if H&P > 30 days Chief Complaint: SCREENING Details of Present Illness: PMX Asthma Morbid obesity Prediabetes * SURGICAL HISTORY [address] teeth extraction Abdominal abscess drained - Rell ? appendiceal 2009 * Present Medications: see Short Stay Collaborative assessment Allergies: Allergies Allergy/AdvReac Type Severity Reaction Status Date / Time No Known Allergies Allergy Unknown NONE Verified 02/02/25 08:14 Review of Systems Review of Systems Comment: Ten point ROS negative Exam Exam Comment: Gen appear: No acute distress HEENT: no icterus Chest: No overt resp distress Abd: soft, nontender, nondistended Psych: Stable affect, answering questions appropriately Neuro: A/Ox3 noted to move all extremities spontaneously Ext: no peripheral edema Plan Diagnosis/Plan: Unchanged I have reviewed the history and physical and performed a pertinent physical examination on my patient. No changes have occurred unless specified. Time Spent With Patient Time: Total time managing care of this patient today ____ minutes.
--- NOTE | 2025-02-02 09:29 | P.OPN-COLO_ITS ---
Colonoscopy Operative Note Operative Note Date of Service: 02/02/25 Narrative: Procedure: Colonoscopy Indication: Screening Endoscopist: Maria Alejandra Pineda MD Anesthesia Provider: Dr Mik Holley Anesthesia type: MAC Instrument: Olympus [id number] Consent: Indication, risks vs benefits, and alternatives were discussed with the patient who gave written informed consent to proceed. EKG, pulse, pulse oximetry and blood pressure were monitored throughout the procedure. Please see anesthesia flowsheet. Procedure: The patient was brought to the procedure room and placed in the left lateral decubitus position. IV medications were administered by the anesthesia provider in attendance. A digital rectal exam was performed which was abnormal due to finding of hemorrhoids. A distal attachment cap was affixed to the tip of the colonoscope which was then inserted through the anus and advanced through the colon to the cecum at 80 cm,and terminal ileum. Appendiceal orifice and ileocecal valve were identified. Mucosa was carefully examined under high definition white light as the instrument was slowly withdrawn in a retrograde panoramic fashion. Retroflexion was performed in rectum. The procedure was not difficult. There were no immediate obvious complications. The quality of the prep was BBPS: 3+2+3 = adequate Withdrawal time 9 minutes. Limitations: No limitations. Findings: Mucosa: Normal to cecum and terminal ileum. Protruding lesions: * Medium internal hemorrhoids without stigmata of recent bleeding. Impression: 1. Normal colon mucosa 2. External and internal hemorrhoids Recommendations: - repeat colonoscopy for asymptomatic colorectal cancer screening in 10 years.
[2025-02-02 10:05] VITALS: BP 109/55; PULSE 80; RESP 16; TEMP 36.8; O2SAT 97
[2025-02-02 10:20] VITALS: BP 129/69; PULSE 77; RESP 18; TEMP 36.8; O2SAT 97
== END 2025-02-02 10:56 | disposition home or self-care (01) ==
PROVIDERS: PCP Nurse Practitioner Family; Visit Provider Internal Medicine
PROC: 0DJD8ZZ Inspection of Lower Intestinal Tract, Via Natural or Artificial Opening Endoscopic (ICD-10-PCS; CPT 45378; principal; 2025-02-02 09:20)
DX: Z12.11 Encounter for screening for malignant neoplasm of colon (principal); K64.8 Other hemorrhoids; K64.4 Residual hemorrhoidal skin tags; J45.909 Unspecified asthma, uncomplicated; E11.9 Type 2 diabetes mellitus without complications; E66.9 Obesity, unspecified; Z68.43 Body mass index [BMI] 50.0-59.9, adult; Z79.899 Other long term (current) drug therapy
CPT/HCPCS: 45378; J2003; J2704

== ENCOUNTER → 2025-02-02 07:55 | Outpatient (BNV) | payer OTHER, SELFPAY | PROVIDERS: PCP Nurse Practitioner Family; Visit Provider Internal Medicine | DX: Z12.11 Encounter for screening for malignant neoplasm of colon (principal); K64.8 Other hemorrhoids | CPT/HCPCS: 45378 ==

== ENCOUNTER 2025-03-15 14:05 | Outpatient (AMB) | payer OTHER, SELFPAY ==
--- NOTE | 2025-03-15 14:44 | A.OFFPC_ITS ---
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 Accompanied by: Self / Same As Patient Allergies No Known Allergies Allergy (Unknown, Verified 03/15/25 15:18) NONE Medication List - Last Reconciled 03/15/25 by ALEXIS RothmanP- albuterol sulfate 90 mcg/actuation (Ventolin HFA) 2 puffs inhalation Q6H PRN Tobacco use date assessed: 03/15/25 Dental Screening Dental Screen Date: 03/15/25 Did you have a dental visit in the last 12 months?: Yes Did you have a dental problem in the last 6 months where you did not have access to dental care?: No Was dental information given to patient?: Patient has dentist HPI 6m follow up HPI Details Chief Complaint The patient is concerned about his weight and lymphedema management. History of Present Illness The patient is a 49-year-old male presenting with concerns about weight management and lymphedema care. He has been experiencing significant stress related to court appearances and issues involving his son, which have now improved (court case closed currently). The patient is morbidly obese and has lymphedema affecting both lower extremities, with the right side being more severe. He exhibits brawny edema and serous fluid weeping from the right lower extremity. Previously, he was on a GLP-1 agonist which aided in weight management, but insurance issues have prevented continued use. The patient is motivated to make lifestyle changes, focusing on portion control and weight loss. He is scheduled for a follow-up in six months, with lab orders requiring fasting prior to testing. Social History - Family status: Stress related to court appearances and issues involving his son, now improved - Weight management: Focus on portion co ntrol and weight loss Health Maintenance - Emphasis on weight loss and portion co ntrol Review of Systems - General: Reports stress related to cou rt appearances, now improved - Integumentary: Reports brawny edema an d serous fluid weeping from the right lower extremity Physical Exam General: Cooperative, healthy appearing, comfortable, no acute distress and well developed Orientation: Patient oriented x3 Limitations: No limitations Head: Normal to inspection Ears: Hearing grossly normal bilaterally Nose: Normal external nose present Face and sinus: Normal facial exam Eyes: Appearance normal, both eyes and all related structures Neck: Normal visual inspection and Yes full ROM Respiratory: Normal respiratory effort and able to speak in complete sentences. Clear to auscultation bilaterally Cardiovascular: Regular rate and rhythm. Normal S1 and S2 GI: Normal to inspection. Soft to palpation and nontender Skin: No rashes or lesions noted Neuro: Patient oriented x3 Extremities: Lymphedema in lower extremities, right worse than left. Brawny edema present. Weeping with serous fluid in right lower extremity (scant amount). Results Plan 1. Morbid Obesity The patient is advised to focus on weight loss through portion control and lifestyle modifications. A follow-up appointment is scheduled in six months to monitor progress, with lab tests ordered that require fasting. 2. Lymphedema Of The Lower Extremities Referral to the lymphedema clinic is planned to manage the condition, particularly addressing the brawny edema and serous fluid weeping from the right lower extremity. Discussion Notes I discussed with the patient the importance of weight loss and portion control as a primary strategy for managing his morbid obesity. We also talked about the need for a referral to the lymphedema clinic to address the brawny edema and serous fluid weeping from his right lower extremity. I emphasized the need for lifestyle changes and scheduled a follow-up in six months, with lab tests requiring fasting to be completed before the next visit. Patient Instructions - Focus on portion control and weight lo ss. - Attend the lymphedema clinic as referr ed. - Schedule and complete fasting labs bef ore the next visit in six months. [facility] Medical History Asthma Screening for prostate cancer Physical exam Screening for colon cancer Appendix perforation Surgical History Status post incision and drainage Hx of wisdom tooth extraction Family History Mother COPD (chronic obstructive pulmonary disease) Dementia Diabetes Father Dementia Diabetes Social History Housing: House Are you a primary director day care center to a significant other at home: No Do you presently have visiting nurse or other home services: No Alcohol intake: never Patient Tobacco Use Status: Never used Tobacco e-Cigarette/Vaping Use: Never Used service: No Current occupational status: employed Current occupation: [employer] Current occupational exposures/hazards: No Cognitive needs: No Hearing needs: No Vision needs: Yes Questionnaire PHQ-9 Over the last 2 weeks, how often have you been bothered by any of the following problems? 1. Little interest or pleasure in doing things: several days 2. Feeling down, depressed, or hopeless: not at all 3. Trouble falling or staying asleep, or sleeping too much: not at all 4. Feeling tired or having little energy: several days 5. Poor appetite or overeating: several days 6. Feeling bad about yourself - or that you are a failure or have let yourself or your family down: not at all 7. Trouble concentrating on things, such as reading the newspaper or watching television: several days 8. Moving or speaking so slowly that other people could have noticed. Or the opposite - being so fidgety or restless that you have been moving around a lot more than usual: not at all 9. Thoughts that you would be better off or of hurting yourself in some way: not at all Total score: 4 Depression Screening Interpretation: Negative Depression Screening Done: Yes 35927 - PHQ-9 Billing: Yes Source: Developed by Drs. Joseph Olivo, Renea Mancilla, Wesly Lemus and colleagues, with an educational lia from [employer]. Thrive Questionnaire Date Thrive assessed: 09/14/24 I am a: Patient What is your living situation today?: I have a steady place to live Within the past 12 months, did the food you bought not last and you didn't have the money to get more?: Never true Within the past 12 months, did you worry whether your food would run out before you got money to buy more?: Never true Do you have trouble paying for medicines?: No Do you have trouble getting transportation to medical appointments?: No Do you have trouble paying your heating and electricity bill?: No Do you have trouble taking care of your child, family member or friend?: No Do you have trouble with day-to-day activities such as bathing, preparing meals, shopping, managing finances, etc.?: No Are you currently unemployed and looking for a job?: No Are you interested in more education?: No Please select the resources that you would like help with: None Currently or been in a relationship where the following occur: No concerns reported THRIVE Score: 0 EDILIA-7 AMB Questionnaire EDILIA-7 Date EDILIA - 7 assessed: 03/15/25 Feeling nervous, anxious, or on edge: 1 = Several days Not being able to stop or control worryin = Not at all Worrying too much about different things: 1 = Several days Trouble relaxin = Not at all Being so restless that it is hard to sit still: 0 = Not at all Becoming easily annoyed or irritable: 1 = Several days Feeling afraid as if something awful might happen: 0 = Not at all Total EDILIA-7 score (0-4 normal; 5-9 mild; 10-14 moderate; 15-21 severe): 3 Source: Developed by Drs. Joseph Olivo, Renea Mancilla, Wesly Lemus and colleagues, with an educational lia from [employer]. Physical exam (Primary Care) Vital Signs: Last Vital Signs Temp 98.2 F 03/15/25 14:45 Pulse 72 03/15/25 14:45 Resp 16 03/15/25 14:45 BP 138/72 03/15/25 14:45 Pulse Ox 98 03/15/25 14:45 BMI result Body Mass Index 62.6 Tobacco/Smoking Status: Tobacco use Status Tobacco use date assessed 03/15/25 03/15/25 14:50 Patient Tobacco Use Status Never used Tobacco 03/15/25 14:50 e-Cigarette/Vaping Use Never Used 03/15/25 14:50 PHQ-9: PHQ-9 Score PHQ-9: Total score 4 03/15/25 14:50 Depression Screening Interpretation: Negative Thrive Assessment: Date of Thrive Assessment Date Thrive assessed 09/14/24 03/15/25 14:50 Currently or been in a relationship where the following occur: No concerns reported Coding Level of Care Code Est Pt Level 3 (68733) Diagnoses Lymphedema I89.0 Morbid obesity E66.01 Additional Codes PHQ-9 - 53760 - PHQ-9 Billing: Yes ([id number]) Assessment & Plan Assessment & Plan (1) Lymphedema: Code(s): I89.0 - Lymphedema, not elsewhere classified Category: Medical (2) Morbid obesity: Code(s): E66.01 - Morbid (severe) obesity due to excess calories Category: Medical Plan . Orders: Orders UA CC w/rflx Micro + Cult Today I89.0 - Lymphedema, not elsewhere classified Lipid Panel Today I89.0 - Lymphedema, not elsewhere classified Complete Blood Count Auto Diff Today I89.0 - Lymphedema, not elsewhere classified Comprehensive [place]. Panel Fast Today I89.0 - Lymphedema, not elsewhere classified TSH reflex Free T4 Today I89.0 - Lymphedema, not elsewhere classified Referrals Lymphedema Clinic Referral I89.0 - Lymphedema, not elsewhere classified
[2025-03-15 14:45] VITALS: BP 138/72; PULSE 72; RESP 16; TEMP 36.8; O2SAT 98; BMI 62.6
--- OUTSIDE RECORDS SUMMARY | 2025-03-15 16:40 | XMS_ITS | Patient Health Record ---
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 Supervisor Name Role Phone Nadir HERNANDEZ, Joseph Primary Care Provider Unavail able Ranjan [place] Unavailable [phone] Reason For Referral No Information Social History [...] Treatment Pending Test Test Name Order Date [id number] TENDON SHEATH/LIGAMENT 0 07/25/2018 Insurance Providers Payer Name Payer Address Payer Phone Subscriber Number Group Number Insured Name Patient Relationship to Insured Coverage Start Date Coverage End Date [facility] [address] [place] [address] [id number] Jerad aSul Self - patient is the insured Medical (General) History Medical History History ICD Code intraabdominal abscess, s/p CT guided drainage (probably secondary to a ruptured appendix) cardiac murmur asthma in childhood hypertension, borderline obesity Surgical History Surgery Date(Month/Year)
== END 2025-03-15 15:48 | disposition home or self-care (01) ==
LOC: HO.HMCC 14:06
PROVIDERS: PCP Nurse Practitioner Family; Visit Provider Nurse Practitioner Family
DX: I89.0 Lymphedema, not elsewhere classified (principal); E66.01 Morbid (severe) obesity due to excess calories; Z68.44 Body mass index [BMI] 60.0-69.9, adult

== ENCOUNTER → 2025-03-15 14:05 | Outpatient (BNVA) | payer OTHER, SELFPAY | PROVIDERS: PCP Nurse Practitioner Family; Visit Provider Nurse Practitioner Family | DX: E66.01 Morbid (severe) obesity due to excess calories (principal); I89.0 Lymphedema, not elsewhere classified; Z68.44 Body mass index [BMI] 60.0-69.9, adult | CPT/HCPCS: 96127 ==